=== PATIENT | female | born 1995 | race Two or more races ===

== ENCOUNTER 2018-01-14 11:14 | Emergency (ER) | payer OTHER ==
[2018-01-14 11:36] VITALS: TEMP 98; BMI 24.2
--- NOTE | 2018-01-14 11:46 | PDOC ---
History of Present Illness - General Chief Complaint: Pain Stated Complaint: ABD PAIN Time Seen by Provider: 01/14/18 11:45 History Source: Patient Exam Limitations: No Limitations - History of Present Illness Travel History: No Initial Comments: 01/14/18 12:51 Agent recently arrived yesterday afternoon from [place] to visit her boyfriend when she said had acute onset of abdominal pain and vomiting upon leaving the air flight. States felt mildly improved and went out last night and admitted drinking wine and [place]- states pain to her abdomen recurred. SHe came into the emergency department for evaluation as has had persistent vomiting, greater than 8 times this morning with no stool. Denies dysuria, denies vaginal drainage or discharge, has no history of fevers, no knowledge of tainted food ingestion, has not traveled out of the country recently. No one else to her knowledge is ill. 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 patient came to the emergency department for evaluation after 24 hours of abdominal pain , cramping and general malaise. Is now continued to vomit bilious fluid, appears mccormick and mildly jaundiced. Timing/Duration: reports: getting worse Quality: reports: mild, moderate, sharpness, stabbing Abdominal Pain Onset Location: reports: periumbilical, generalized abdomen Activities at Onset: reports: none Aggravating Factors: improves with: None Past History - Travel Traveled outside of the country in the last 30 days: No Close contact w/someone who was outside of country & ill: No - Past Medical History Allergies/Adverse Reactions: Allergies Allergy/AdvReac Type Severity Reaction Status Date / Time No Known Allergies Allergy Verified 01/14/18 11:37 Home Medications: Ambulatory Orders Famotidine [Pepcid -] 20 mg PO BID #14 tablet 01/14/18 Ondansetron [Zofran Odt -] 4 mg SL TID #10 od.tablet 01/14/18 Unobtainable 01/14/18 COPD: No - Suicide/Smoking/Psychosocial Hx Smoking History: Never smoked Review of Systems - Review of Systems Able to Perform ROS?: Yes Is the patient limited Grenadian proficient: Yes Constitutional: Yes: Symptoms Reported, See HPI, Malaise HEENTM: Yes: See HPI. No: Symptoms Reported Respiratory: Yes: See HPI. No: Symptoms reported, Cough ABD/GI: Yes: Symptoms Reported, See HPI, Nausea, Poor Appetite, Poor Fluid Intake, Vomiting. No: Abdominal Distended, Constipated, Diarrhea : Yes: See HPI. No: Symptoms Reported, Burning, Dysuria, Discharge Musculoskeletal: Yes: Symptoms Reported All Other Systems: Reviewed and Negative *Physical Exam - Vital Signs Last Vital Signs Temp Pulse Resp BP Pulse Ox 98 F 60 18 120/74 99 01/14/18 11:34 01/14/18 11:34 01/14/18 11:34 01/14/18 11:34 01/14/18 11:34 - Physical Exam General Appearance: Yes: Nourished, Appropriately Dressed, Apparent Distress, Moderate Distress, Severe Distress HEENT: positive: TORREY (faintly jaundiced conjunctiva), TMs Normal. negative: Normal ENT Inspection, Pharyngeal Erythema (faintly jaundiced hard palate), Rhinorrhea, Sinus Tenderness Neck: positive: Supple. negative: Tender, Lymphadenopathy (R), Lymphadenopathy (L) Respiratory/Chest: positive: Lungs Clear, Normal Breath Sounds, Rhonchi. negative: Wheezing Gastrointestinal/Abdominal: positive: Soft, Organomegaly (palpable spleen approximately 3 cm below left rib border with mild tenderness), Spleenomegaly. negative: Distended, Guarding, Rebound Extremity: positive: Normal Capillary Refill, Normal Inspection, Normal Range of Motion Integumentary: positive: Dry, Warm, Jaundice (pale) Neurologic: positive: scientific diver II-XII NML intact, Fully Oriented, Alert, Normal Mood/ Affect, Normal Response, Motor Strength 5/5 ED Treatment Course - LABORATORY CBC & Chemistry Diagram: 01/14/18 13:45 01/14/18 13:45 Progress Note - Progress Note Progress Note: Medicated with Zofran at 12:30 PM, and patient had 2 different episodes of emesis since that time. Patient appears quite ill, has rigers , and continues to vomit. Unable to initiate IV with 3 attempts. Patient was moved to main emergency department for more thorough evaluation and treatment. Turnover given 2R DARÍO Holman updated to plan *DC/Admit/Observation/Transfer Diagnosis at time of Disposition: Gastroenteritis - Discharge Dispostion Disposition: HOME Condition at time of disposition: Stable - Prescriptions Prescriptions: Famotidine [Pepcid -] 20 mg PO BID #14 tablet Ondansetron [Zofran Odt -] 4 mg SL TID #10 od.tablet - Referrals Referrals: Jose Goff MD [Staff Physician] - - Patient Instructions Printed Discharge Instructions: DI for Vomiting -- Adult Additional Instructions: You have nausea and vomiting Avoid all dairy products until 48 hours after the vomiting has resolved. Eat a bland diet including apple sauce, toast, bananas, and plain rice Drink plenty of fluids including pedialyte, watered down juices and water You may take zofran every 8 hours as needed for nausea Please take Pepcid twice a day for the next week. Follow up with your primary care doctor this week Return to the ED if you develop fevers, abdominal pain, worsening vomiting, or if you have any changes in your symptoms. - Post Discharge Activity
[2018-01-14] MEDS ORDERED: ONDANSETRON *ODT* 4 MG TABLET ONE (12:17)
[2018-01-14 12:40] LABS: URINE APPEARANCE CLEAR; URINE BILIRUBIN NEGATIVE (<2.0 mg/dL); URINE COLOR YELLOW; URINE GLUCOSE (UA) 1+ (NEGATIVE); URINE KETONE 2+ (NEGATIVE); URINE LEUK ESTERASE NEGATIVE (NEGATIVE); URINE NITRITE NEGATIVE (NEGATIVE); URINE UROBILINOGEN NEGATIVE mg/dL (0.2-1.0)
[2018-01-14 12:50] LABS: URINE PROTEIN 2+ (NEGATIVE)
[2018-01-14 12:52] LABS: EPI CELLS RARE /HPF (FEW); URINE BACTERIA RARE /hpf (NONE SEEN); URINE MUCUS FEW
--- NOTE | 2018-01-14 13:04 | PDOC ---
*Physical Exam - Vital Signs Last Vital Signs Temp Pulse Resp BP Pulse Ox 98 F 60 18 120/74 99 01/14/18 11:34 01/14/18 11:34 01/14/18 11:34 01/14/18 11:34 01/14/18 11:34 - Physical Exam General Appearance: Yes: Nourished, Appropriately Dressed. No: Apparent Distress (laying on exam bed breathing easily.) HEENT: positive: EOMI, TORREY. negative: Scleral Icterus (R), Scleral Icterus (L) Neck: positive: Trachea midline, Supple. negative: Tender, Rigid, Lymphadenopathy (R), Lymphadenopathy (L) Respiratory/Chest: positive: Lungs Clear, Normal Breath Sounds. negative: Respiratory Distress, Accessory Muscle Use, Rhonchi, Wheezing Cardiovascular: positive: Regular Rhythm, Regular Rate, S1, S2 (present). negative: Murmur Gastrointestinal/Abdominal: positive: Normal Bowel Sounds, Tender, Flat, Soft. negative: Distended, Guarding, Rebound Integumentary: positive: Normal Color, Dry, Warm Neurologic: positive: Fully Oriented, Alert, Normal Mood/Affect, Normal Response ED Treatment Course - LABORATORY CBC & Chemistry Diagram: 01/14/18 13:45 01/14/18 13:45 - ADDITIONAL ORDERS Additional order review: Laboratory Results 01/14/18 01/14/18 12:05 12:04 Urine Color Yellow Urine Appearance Clear Urine pH 6.0 Ur Specific [place] 1.029 Urine Protein 2+ H Urine Glucose (UA) 1+ H Urine Ketones 2+ H Urine Blood 2+ H Urine Nitrite Negative Urine Bilirubin Negative Urine Urobilinogen Negative Ur Leukocyte Esterase Negative Urine WBC (Auto) 3 Urine RBC (Auto) 9 Ur Epithelial Cells Rare Urine Bacteria Rare Urine Mucus Few Urine HCG, Qual Negative Medical Decision Making - Medical Decision Making 01/14/18 16:37 Patient is a 22-year-old female no past medical history who presents to the emergency department today for nausea and vomiting for one day after traveling from [place] to [place]. Patient was received as a signout from [employer]. On exam patient with diffuse abdominal tenderness but no focal findings. Most likely due to her vomiting. Lab work shows an elevated WBC count however this is not unusual in the setting of cyclic vomiting. Liver enzymes/lipase are normal at this time. Hepatitis labs drawn. Patient received IV fluids, Zofran, Reglan, Benadryl and Pepcid with relief of her symptoms. Patient tolerating by mouth. Ate crackers and ice chips. Repeat abdominal exam now without pain. Feeling better like to go home at this time. We'll discharge home. Patient worsens all discharge instructions and all questions were answered. *DC/Admit/Observation/Transfer Diagnosis at time of Disposition: Gastroenteritis - Discharge Dispostion Disposition: HOME Condition at time of disposition: Stable Decision to Admit order: No - Prescriptions Prescriptions: Famotidine [Pepcid -] 20 mg PO BID #14 tablet Ondansetron [Zofran Odt -] 4 mg SL TID #10 od.tablet - Referrals Referrals: Jose Goff MD [Staff Physician] - - Patient Instructions Printed Discharge Instructions: DI for Vomiting -- Adult Additional Instructions: You have nausea and vomiting Avoid all dairy products until 48 hours after the vomiting has resolved. Eat a bland diet including apple sauce, toast, bananas, and plain rice Drink plenty of fluids including pedialyte, watered down juices and water You may take zofran every 8 hours as needed for nausea Please take Pepcid twice a day for the next week. Follow up with your primary care doctor this week Return to the ED if you develop fevers, abdominal pain, worsening vomiting, or if you have any changes in your symptoms. - Post Discharge Activity
[2018-01-14] MEDS ORDERED: ONDANSETRON 4 MG/2 ML VIAL IVPUSH ONE (13:05)
[2018-01-14] MEDS ORDERED: SODIUM CHLORIDE 1,000 ML IV STA (13:05)
[2018-01-14] MEDS ORDERED: ONDANSETRON *ODT* 4 MG TABLET SL ONE (13:31)
[2018-01-14] MEDS ORDERED: ONDANSETRON 4 MG/2 ML VIAL ONE (13:53)
[2018-01-14 13:58] LABS: BASO % 0.3 % (0-2.0); HEMATOCRIT 36.3 % (32.4-45.2); HEMOGLOBIN 11.8 GM/dL (10.7-15.3); LYMPH % 4.1 % (8-40); MCH 28.3 pg (25.7-33.7); MCHC 32.5 g/dl (32.0-36.0); MEAN CELL VOLUME 87.2 fl (80-96); MEAN PLT VOLUME 9.2 fl (7.5-11.1); MONO % 3.6 % (3.8-10.2); PLATELET COUNT 327 K/MM3 (134-434); RBC 4.17 M/mm3 (3.60-5.2); RDW 12.1 % (11.6-15.6); WHITE BLOOD COUNT 17.4 K/mm3 (4.0-10.0)
[2018-01-14 14:08] LABS: INR 1.3 (0.82-1.09); PROTHROMBIN TIME (PATIENT) 14.7 SEC (9.7-13.0)
[2018-01-14] MEDS ORDERED: METOCLOPRAMIDE HCL INJECTION 10 MG/2 ML VIAL IVPB ONE (14:19)
[2018-01-14] MEDS ORDERED: FAMOTIDINE 20 MG/50 ML IVPB 20 MG/50 ML MG IVPB ONE ×2 (14:20→15:16)
[2018-01-14] MEDS ORDERED: MAG HYDROX/AL HYDROX/SIMETH 30 ML UNIT-DOSE CUP PO ONE (14:20)
[2018-01-14 14:22] LABS: ALBUMIN 4.7 g/dl (3.4-5.0); ALK PHOS 66 U/L (45-117); ANION GAP 15 (8-16); BILIRUBIN,TOTAL 0.9 mg/dL (0.2-1.0); BLOOD UREA NITROGEN 10 mg/dL (7-18); CALCIUM 9.6 mg/dL (8.5-10.1); CHLORIDE 102 mmol/L (98-107); CO2 20 mmol/L (21-32); CREATININE 0.8 mg/dL (0.55-1.02); GLUCOSE,RANDOM 102 mg/dL (74-106); LIPASE 69 U/L (73-393); SGPT/ALT 21 U/L (12-78); SODIUM 137 mmol/L (136-145); TOT PROT 8.4 g/dl (6.4-8.2)
[2018-01-14 14:29] LABS: ANISOCYTOSIS 2+; MACROCYTOSIS 0; PLATELET ESTIMATE NORMAL
--- NOTE | 2018-01-14 14:29 | PDOC ---
*Physical Exam - Vital Signs Last Vital Signs Temp Pulse Resp BP Pulse Ox 98 F 60 18 120/74 99 01/14/18 11:34 01/14/18 11:34 01/14/18 11:34 01/14/18 11:34 01/14/18 11:34 ED Treatment Course - LABORATORY CBC & Chemistry Diagram: 01/14/18 13:45 01/14/18 13:45 - ADDITIONAL ORDERS Additional order review: Laboratory Results 01/14/18 01/14/18 01/14/18 13:45 13:45 12:05 PT with INR 14.70 H INR 1.30 H Sodium 137 Chloride 102 Carbon Dioxide 20 L Anion Gap 15 BUN 10 Creatinine 0.8 Creat Clearance w eGFR > 60 Random Glucose 102 Calcium 9.6 Total Bilirubin 0.9 ALT 21 Alkaline Phosphatase 66 Total Protein 8.4 H Albumin 4.7 Lipase 69 L Urine Color Urine Appearance Urine pH Ur Specific [place] Urine Protein Urine Glucose (UA) Urine Ketones Urine Blood Urine Nitrite Urine Bilirubin Urine Urobilinogen Ur Leukocyte Esterase Urine WBC (Auto) Urine RBC (Auto) Ur Epithelial Cells Urine Bacteria Urine Mucus Urine HCG, Qual Negative 01/14/18 12:04 PT with INR INR Sodium Chloride Carbon Dioxide Anion Gap BUN Creatinine Creat Clearance w eGFR Random Glucose Calcium Total Bilirubin ALT Alkaline Phosphatase Total Protein Albumin Lipase Urine Color Yellow Urine Appearance Clear Urine pH 6.0 Ur Specific [place] 1.029 Urine Protein 2+ H Urine Glucose (UA) 1+ H Urine Ketones 2+ H Urine Blood 2+ H Urine Nitrite Negative Urine Bilirubin Negative Urine Urobilinogen Negative Ur Leukocyte Esterase Negative Urine WBC (Auto) 3 Urine RBC (Auto) 9 Ur Epithelial Cells Rare Urine Bacteria Rare Urine Mucus Few Urine HCG, Qual 01/14/18 13:45 RBC 4.17 MCV 87.2 MCHC 32.5 RDW 12.1 MPV 9.2 Neutrophils % 92.0 H Lymphocytes % 4.1 L Monocytes % 3.6 L Eosinophils % 0.0 Basophils % 0.3 - Medications Given in the ED: ED Medications Discontinued Medications Generic Name Dose Route Start Last Admin Trade Name Freq PRN Reason Stop Dose Admin Sodium Chloride 1,000 mls @ 1,000 mls/hr 01/14/18 13:05 01/14/18 13:55 Normal Saline - IV 01/14/18 14:04 1,000 mls/hr ASDIR STA Administration Ondansetron HCl 4 mg 01/14/18 13:05 01/14/18 13:55 Zofran Injection IVPUSH 01/14/18 13:06 4 mg ONCE ONE Administration Ondansetron HCl 4 mg 01/14/18 13:31 01/14/18 13:52 Zofran Odt - SL 01/14/18 13:32 Not Given ONCE ONE Medical Decision Making - Medical Decision Making 01/14/18 14:28 Pt seen by the Advanced Practice Provider under my direct supervision Ancillary studies reviewed I agree with plan as outlined by the Advanced Practice Provider DARÍO Troncoso *DC/Admit/Observation/Transfer Diagnosis at time of Disposition: Gastroenteritis - Discharge Dispostion Disposition: HOME Condition at time of disposition: Stable - Prescriptions Prescriptions: Famotidine [Pepcid -] 20 mg PO BID #14 tablet Ondansetron [Zofran Odt -] 4 mg SL TID #10 od.tablet - Referrals Referrals: Jose Goff MD [Staff Physician] - - Patient Instructions Printed Discharge Instructions: DI for Vomiting -- Adult Additional Instructions: You have nausea and vomiting Avoid all dairy products until 48 hours after the vomiting has resolved. Eat a bland diet including apple sauce, toast, bananas, and plain rice Drink plenty of fluids including pedialyte, watered down juices and water You may take zofran every 8 hours as needed for nausea Please take Pepcid twice a day for the next week. Follow up with your primary care doctor this week Return to the ED if you develop fevers, abdominal pain, worsening vomiting, or if you have any changes in your symptoms. - Post Discharge Activity
[2018-01-14 14:33] LABS: SGOT/AST 32 U/L (15-37)
[2018-01-14] MEDS ORDERED: MAG HYDROX/AL HYDROX/SIMETH 30 ML UNIT-DOSE CUP ONE (15:16)
[2018-01-14] MEDS ORDERED: METOCLOPRAMIDE HCL INJECTION 10 MG/2 ML VIAL ONE (15:16)
[2018-01-14 17:16] VITALS: BP 125/74; PULSE 70
[2018-01-16 06:06] LABS: HEP.C VIRUS AB <0.1 s/co ratio (0.0-0.9)
== END 2018-01-14 17:16 | disposition home or self-care (01) ==
LOC: JER 11:14
PROC: 3E0337Z Introduction of Electrolytic and Water Balance Substance into Peripheral Vein, Percutaneous Approach (ICD-10-PCS; principal; 2018-01-14)
PROC: 3E033GC Introduction of Other Therapeutic Substance into Peripheral Vein, Percutaneous Approach (ICD-10-PCS; 2018-01-14)
PROC: 3E033GC Introduction of Other Therapeutic Substance into Peripheral Vein, Percutaneous Approach (ICD-10-PCS; 2018-01-14)
PROC: 3E033GC Introduction of Other Therapeutic Substance into Peripheral Vein, Percutaneous Approach (ICD-10-PCS; 2018-01-14)
DX: K52.9 Noninfective gastroenteritis and colitis, unspecified (principal)
CPT/HCPCS: 36415; 80053; 80074; 81003; 81015; 83690; 84703; 85025; 85610; 99283-25; J7030